=== PATIENT | male | born 1985 | race Two or more races ===

== ENCOUNTER 2024-11-21 06:10 | Day surgery (SDC) | payer MEDICAID, SELFPAY ==
[2024-11-20 11:54] VITALS: BMI 27.1
[2024-11-20 12:45] LABS: Basophils # (Auto) 0.1 Thou/mm3 (0.0-0.2); Basophils % (Auto) 1 % (0-2.5); Eosinophils # (Auto) 0.1 Thou/mm3 (0.0-0.5); Eosinophils % (Auto) 2 % (0-10); Hematocrit 46.3 % (41.0-53.0); Hemoglobin 16.1 g/dL (13.5-16.0); Immature Granulocytes % (Auto) 0 % (0-0); Immature Granulocytes Auto 0.02 Thou/mm3 (0.00-0.00); Lymphocytes % (Auto) 45 % (10-50); Mean Corpuscular HGB Conc 34.8 g/dl (31.0-37.0); Mean Corpuscular Volume 89 fL (80-100); Monocytes # (Auto) 0.8 Thou/mm3 (0.0-0.8); Monocytes % (Auto) 9 % (0-12); Neutrophils # (Auto) 3.8 Thou/mm3 (1.8-7.7); Neutrophils % (Auto) 43 % (37-80); Nucleated Red Blood Cell % 0 /100 WBC (0); Platelet Count 371 Thou/mm3 (140-440); RDW Standard Deviation 46.4 fL (35.1-43.9); Red Blood Count 5.19 Miln/mm3 (4.50-5.90); White Blood Count 8.9 Thou/mm3 (3.8-10.6)
[2024-11-20 12:57] LABS: Alanine Aminotransferase 24 U/L (10-49); Albumin, Serum 4.8 gm/dL (3.5-5.0); Albumin/Globulin Ratio 1.8 (1.2-2.2); Alkaline Phosphatase 102 U/L (46-116); Anion Gap 10 (7-16); Aspartate Amino Transferase 20 U/L (0-34); BUN/Creatinine Ratio 12 Ratio (12-20); Bilirubin,Total 0.7 mg/dL (0.3-1.2); Blood Urea Nitrogen 12 mg/dL (9-23); Calcium 9.3 mg/dL (8.3-10.6); Calcium (Corrected) 9.3 mg/dL (8.5-10.1); Carbon Dioxide 29.5 mMol/L (20.0-31.0); Chloride 106 mMol/L (98-107); Estimated Creatinine Clearance 90.2 mL/min (>60); Globulin 2.7 gm/dL (2.3-3.5); Glucose 82 mg/dL (74-106); Osmolality,Calculated 287 (275-295); Potassium 4.4 mMol/L (3.4-5.1); Sodium 145 mMol/L (136-145); Total Protein 7.5 gm/dL (5.7-8.2); eGFR > 60 See Note
[2024-11-20 13:35] LABS: INR 1.1 (0.9-1.3); Partial Thromboplastin Time 26.7 Seconds (22.0-36.0); Prothrombin Time 11.7 Seconds (9.0-12.2)
[2024-11-21] VITALS (8 sets, daily range): BP systolic 101–122; BP diastolic 60–81; PULSE 59–91; RESP 12–20; TEMP 36.1–36.8; O2SAT 90–99; BMI 26.7
[2024-11-21] MEDS: RINGERS LACTATED 1000 ML 1,000 ML 20 ML IV (06:56)
--- NOTE | 2024-11-21 09:49 | SUR.PHASEI ---
0949: Pt. arrived with oral airway in place, vitals stable, breathing unlabored, no signs of distress, dressing to lower right ABD CDI, no active bleed noted, report received from Susy TOM and MD Vargas
--- NOTE | 2024-11-21 10:05 | PD.SUROPNT ---
Date of Procedure 11/21/24 Pre Op Diagnosis Symptomatic right inguinal hernia Post Op Diagnosis Same, indirect in type Procedure Repair of the right indirect inguinal hernia with high ligation of the sac and placement of 2 x 4 Marlex mesh on the floor of the inguinal canal Findings Patient is found to have a large sac extending towards the root of the scrotum and it had dense adhesions to the cord structures. Floor of the inguinal canal appeared normal Procedure Description After the patient was given endotracheal anesthesia is lower abdomen was prepped with chloreprep solution and draped. Standard right groin incision was made in the external oblique was reached. Incision was made over the external oblique and the patient was found to have a large sac next to the cord structures. The cord structures were encircled around a Darlene drain and the sac was easily . It was opened and was found to contain no contents. The sac was extending all the way to the root of the scrotum patient had a large opening in this hernial sac in the mouth of the internal ring was however narrow. I suture ligated this with 2-0 chromic and then divided. Another 2-0 chromic suture ligation was used to prevent any slippage of the previous suture. Then I palpated the floor of the inguinal canal which appeared to be strong. I placed a 2 x 4 Marlex mesh and attached it medially to the pubic tubercle and laterally it was tucked underneath the external oblique after crossing the cord structures. I placed one stitch of Prolene lateral to the cord structures. Then external oblique was closed with running 2-0 Vicryl and subcutaneous tissues was approximated with 30 plain I injected half percent Marcaine with epinephrine for analgesia and the skin was closed with 4-0 Monocryl. Dressing was applied with Adaptic and 4 x 4 and the patient tolerated the procedure well and left operating room in stable condition. Anesthesia GETA Implants 2 x 4 Marlex mesh Pathology / specimen None Pathology comment: My indirect IVF Infused 800 Estimated Blood Loss 25 Condition Stable Disposition PACU Surgeon June Finn MD Surgical Staff Operation Date: 11/21/24 08:15 Case Staff Anesthesiologist: Josué Vargas RN First Assistant: Clementine Lerma
[2024-11-21] MEDS: fentaNYL CIT INJ 50 mCg/ML AMP 2ML 25 MCG IVP ×3 (10:10→10:27)
--- NOTE | 2024-11-21 10:50 | SUR.PHASEII ---
1050: Pt. AAOx4, vitals stable, breathing unlabored, no complaint of pain or nausea, dressing to lower right ABD CDI, no active bleed noted, pt. tolerated sips of water well, pt. ambulated to wheelchair with steady gait and no assist, no complications. Gave discharge instructions to the pt. and his ride using engineering inspector, both verbalized understanding and had no further questions. Pt. left with all personal belongings.
== END 2024-11-21 10:50 | disposition home or self-care (01) ==
PROVIDERS: PCP Family Medicine; Referring Provider Surgery; Visit Provider Surgery
PROC: (CPT 49505; principal; 2024-11-21 08:00)
DX: K40.90 Unilateral inguinal hernia, without obstruction or gangrene, not specified as recurrent (principal)
CPT/HCPCS: 49505; 36415; 80053; 85025; 85610; 85730; A4217; A4649; C1781; J0131; J1100; J2250; J2405; J2704; J3010; J3490; J7120; A9270

== ENCOUNTER 2025-03-08 19:39 | Emergency (ER) | payer MEDICAID, SELFPAY ==
[2025-03-08 19:41] VITALS: BMI 25.7
[2025-03-08 20:58] VITALS: BP 127/83; PULSE 66; RESP 17; TEMP 37.2; O2SAT 97
[2025-03-08 21:04] LABS: Collection Type, Urine Clean Catch; Squamous Epithelial Cell,Urine 0 /hpf (0-5)
--- NOTE | 2025-03-08 21:04 | XR_ITS ---
Examination: CT abdomen and pelvis without contrast. Coronal 3-D reconstructions. Sagittal 2-D reconstructions. Date and time of exam:March 08, 2025 0922 hrs. Indications: Onset right-sided flank pain today CTDI: vol (mGy): 6.13 DLP: (mGycm): 344 Technique: Axial images of the abdomen have been obtained, 3 mm slice thickness Intravenous contrast material has not been administered. Low dose protocols were performed. One or more of the following dose reduction techniques were used; automated exposure control, adjustment of the mA and/or KV according to patient size, use of iterative reconstruction technique. Findings: No focal liver or splenic lesions No gallstones No pancreatic or adrenal mass Bilateral 2 mm calculi No hydronephrosis or ureteral calculi Normal appendix No bowel obstruction Contracted urinary bladder no bladder calculi, no prostatomegaly Impression: Bilateral nonobstructing renal calculi, no hydronephrosis or ureteral calculi Normal appendix
--- NOTE | 2025-03-08 21:05 | EDNOTE_ITS ---
ED Abdominal Pain RME/HPI General Chief Complaint: Abdominal Pain Stated complaint: RLQ ABD PAIN Time seen by provider: 03/08/25 19:43 Arrival date/time: 03/08/25 19:39 RME / HPI RME / HPI narrative: 39-year-old male patient came in for evaluation regarding right tongue pain. Onset of symptoms since earlier today sudden onset right tongue pain, associated with dysuria, and discomfort. Denies any fever denies any vomiting denies any hematuria denies any other complaints no medication was taken prior to ER visit. Related Data Home Medications ?Medication ?Instructions ?Recorded ?Confirmed ibuprofen 400 mg tablet (IBU) 400 mg PO Q8H PRN pain 0 11/20/24 11/21/24 Previous Rx's ?Medication ?Instructions ?Recorded ibuprofen 800 mg tablet 800 mg PO Q8H PRN pain #30 t abs 03/08/25 tamsulosin 0.4 mg capsule (Flomax) 0.4 mg PO QDAY #14 caps 03/08/25 Allergies Allergy/AdvReac Type Severity Reaction Status Date / Time No Known Allergies Allergy Verified 03/08/25 19:44 Review of Systems Review of Systems Narrative Review of Systems: Review of system reviewed and within normal limits except mentioned in HPI ED Exam Narrative Physical exam: VITAL SIGNS: Reviewed. GENERAL APPEARANCE: Alert and interactive, follows commands, no acute distress, HEAD AND FACE: Non-traumatic. ENT: PERRL, pink conjunctivitis, eyelid no trauma, Mucous membrane moist. NECK: Supple, nontender, no nuchal rigidity. CHEST: No tenderness, no crepitus, no paradoxical movement, no retractions. LUNGS: Clear, well ventilated, symmetric, no rales, no wheezing, no ronchi, no stridor, good breath sounds bilaterally. HEART: Regular rate, regular rhythm, no murmur, no gallops. ABDOMEN: Soft, positive bowel sounds, nondistended, no guarding, nontender, no rebound, no masses, right flank tenderness RECTAL: Deferred. GENITAL: Deferred. NEUROLOGICAL: Gross motor function intact sensory function intact, Appropriate for age. MUSCULOSKELETAL: low back nontender, full range of motion. EXTREMITIES: Nontender, full range of motion. SKIN: Color pink, dry, no rash, no lacerations, no abrasions, no contusions. LYMPHATICS: Deferred. Course Quality Measures none Orders Category Date Time Status CT abdomen pelvis wo con Stat Exams 03/08/25 21:04 Completed Urinalysis, C/S if Indicated Stat Lab 03/08/25 20:21 Completed Ketorolac Inj [Toradol Inj] Med 03/08/25 21:04 Discontinued 30 mg IM X1 ONE Vital Signs Vital signs: Vital Signs Temperature 98.9 F 03/08/25 20:58 Pulse Rate 66 03/08/25 20:58 Respiratory Rate 17 03/08/25 20:58 Blood Pressure 127/83 03/08/25 20:58 Pulse Oximetry (%) 97 03/08/25 20:58 Oxygen Delivery Method Room Air 03/08/25 20:58 Abdominal Pain MDM MDM Narrative MDM Narrative:: 39-year-old male patient came in for evaluation regarding right tongue pain. Onset of symptoms since earlier today sudden onset right tongue pain, associated with dysuria, and discomfort. Denies any fever denies any vomiting denies any hematuria denies any other complaints no medication was taken prior to ER visit. Patient's laboratory workup is negative for UTI. CT scan of the abdomen pelvis came back unremarkable except for tiny bilateral renal calculi. No obstruction noted. No hydronephrosis noted. Results discussed with the patient patient was given a copy of his CT scan. Patient will prescribe home on Flomax and Motrin. I told him to follow-up with urologist outpatient. Patient data External records reviewed:: None Clinical information provided by:: patient Social determinants that could affect healthcare access:: none Patient has the following chronic illnesses:: None How is presenting disease/condition affected by chronic disease/condition?: no chronic disease Evaluation data The following diagnostics were reviewed and interpreted by me:: lab results and radiology exam(s) Lab and/or radiology exams considered but not ordered:: None Interpretation Summary: Kidney stone Medications / Prescriptions Medications or Prescriptions considered but not ordered:: None Medication administrations:: Medication Administration History Discontinued Medications Ketorolac Tromethamine (Ketorolac Inj 30 Mg/Ml Vial) 30 mg IM X1 ONE Stop: 03/08/25 21:05 Last Admin: 03/08/25 21:16 Dose: 30 mg Documented By: SCOTT Toradol IM Consultations Consultation(s) initiated? (list below): No Diagnosis Differential diagnosis abdominal pain: abdominal pain, calculus of kidney and diverticulitis Most likely diagnosis given after review of the tests above:: Renal colic, calculus of kidney Admission Indicated Admission indicated?: not indicated Explain why admission is indicated or not indicated:: Stable Admission Request Was there a request for admission?: No Disposition Plan Disposition Plan: Discharge Discharge Attestation Discharge Attestation: The patient was given an opportunity to ask questions and understood the discharge instructions. Discharge instructions specifically effects, indications for sooner follow up or return to the emergency department, and the expected course of current diagnosis. Patient condition: Stable Discharge Plan Plan Patient Disposition: HOME (Self Care) Discharge Disposition comment: Stable Prescriptions/Referrals Prescriptions/Med Rec: New tamsulosin [Flomax] 0.4 mg capsule 0.4 mg PO QDAY Qty: 14 0RF ibuprofen 800 mg tablet 800 mg PO Q8H PRN (Reason: pain) Qty: 30 0RF No Action ibuprofen [IBU] 400 mg tablet 400 mg PO Q8H PRN (Reason: pain) Referrals: No Primary/Family,Physician [Primary Care Provider] - In 1 week Problem List Clinical Impression: Renal colic, Kidney stone Patient/Caregiver Discharge Instructions Discharge Activity: activity as tolerated Education Materials: Kidney Stones Expectant Tx Additional Instructions: Thank you for the opportunity for serving you today. You are stable for discharged . You are advised to: Follow-up with your PCP in 1 to 2 days as your PCP to refer you to urologist Return to ED for worsening of symptoms Increase oral fluids, a lot of water Take medication as prescribed Print Language: Maltese Stand Alone Forms: Christine Award Info., Patient Portal Info Letter YASIR/ARLNY Supervising Physician YASIR/ARLYN Supervising Physician: MD Gerard
[2025-03-08] MEDS: KETOROLAC INJ 30 MG/ML VIAL IM (21:16)
[2025-03-08 21:18] LABS: Bilirubin,Urine Negative (Negative); Blood,Urine 3+ (Negative); Clarity,Urine Clear (Clear/Hazy); Color,Urine Lt-Yellow (Lt Yel-Yel); Culture Indicated,Urine Not Indicated; Glucose, Urine Negative (Negative); Ketones,Urine Negative (Negative); Leukocyte Esterase,Urine Negative (Negative); Nitrite,Urine Negative (Negative); PH,Urine 6.0 (5.0-7.0); Protein,Urine Negative (Neg - Trace); RBC,Urine 37 /hpf (0-3); Specific Gravity,Urine 1.012 (1.001-1.035); Urobilinogen,Urine Negative mg/dL (0.0-1.0); WBC,Urine 1 /hpf (0-5)
[2025-03-08 22:00] VITALS: RESP 16
== END 2025-03-08 22:02 | disposition home or self-care (01) ==
PROVIDERS: Nurse Practitioner Family; Emergency Provider Emergency Medicine
DX: N20.0 Calculus of kidney (principal)
CPT/HCPCS: 74176; 81001; 96372; 99283; J1885